=== PATIENT | male | born 1970 | race Caucasian/White ===

== ENCOUNTER → 2016-12-11 | Outpatient (REF) | payer BC ==
[~2016-12-11] MED LIST: AUGM500T34 PO; DOCU10CA PO; IBUPROPHEN PO; LISI10TA4 PO; LISIPOW PO; LORT5TAB PO; METO25TA74 PO; METO25TAB PO; METOPROLOL PO; SERTRALINE PO; TYLE325T5 PO; ZOLO50TA PO
== END ==
LOC: M LAB REF 12:29
PROVIDERS: ATTEND Family Medicine
DX: Z85.038 Personal history of other malignant neoplasm of large intestine (principal)

== ENCOUNTER → 2017-06-22 | Outpatient (REF) | payer BC, OTHER, SELFPAY ==
[~2017-06-22] MED LIST changes: +METO1TAB32 PO; -METO25TA74 PO
== END ==
LOC: M LAB REF 12:44
PROVIDERS: ATTEND Family Medicine
DX: Z85.038 Personal history of other malignant neoplasm of large intestine (principal)

== ENCOUNTER → 2017-12-27 | Outpatient (REF) | payer SELFPAY ==
[2017-12-28 09:14] LABS: CARCINOEMBRYONIC ANTIGEN 4.5 NG/ML (<2.5)
== END ==
LOC: M LAB REF 12:27
DX: Z08 Encounter for follow-up examination after completed treatment for malignant neoplasm (principal); Z85.038 Personal history of other malignant neoplasm of large intestine
CPT/HCPCS: 82378

== ENCOUNTER 2018-01-20 09:13 | Day surgery (SDC) | payer OTHER ==
[2018-01-20] MEDS: NS 1,000 ML IV (09:33)
[2018-01-20] MEDS ORDERED: PROPOFOL 200 MG/20 ML VIAL As Ordered ×2 (10:23)
== END 2018-01-20 11:02 | disposition home or self-care (01) ==
LOC: M OPP 09:13
DX: Z08 Encounter for follow-up examination after completed treatment for malignant neoplasm (principal); D12.3 Benign neoplasm of transverse colon; D12.0 Benign neoplasm of cecum; Z86.010 Personal history of colon polyps; Z85.038 Personal history of other malignant neoplasm of large intestine; K57.30 Diverticulosis of large intestine without perforation or abscess without bleeding; I10 Essential (primary) hypertension; G47.30 Sleep apnea, unspecified; R51 Headache; Z79.899 Other long term (current) drug therapy; Z87.891 Personal history of nicotine dependence
CPT/HCPCS: 45385

== ENCOUNTER → 2018-07-04 | Outpatient (REF) | payer OTHER ==
[2018-07-05 08:41] LABS: CARCINOEMBRYONIC ANTIGEN 4.9 NG/ML (<2.5)
== END ==
LOC: M LAB REF 12:35
DX: C18.9 Malignant neoplasm of colon, unspecified (principal)
CPT/HCPCS: 82378

== ENCOUNTER → 2019-06-23 | Outpatient (REF) | payer OTHER ==
[~2019-06-23] MED LIST changes: +METO-346 PO; -METO25TAB PO
== END ==
LOC: M LAB REF 11:59
PROVIDERS: ATTEND Family Medicine
DX: C18.9 Malignant neoplasm of colon, unspecified (principal)

== ENCOUNTER 2019-08-31 09:50 | Day surgery (SDC) | payer OTHER ==
[~2019-08-31] VITALS: Ht 177.8 cm; Wt 121.1 kg
[~2019-08-31 09:50] MED LIST changes: +MULTCAP PO; +NS 1,000 ML IV ONE
[2019-08-31] MEDS ORDERED: PROPOFOL 200 MG/20 ML VIAL As Ordered ONE ×2 (11:42→12:05)
--- NOTE | 2019-08-31 12:06 | ROOR ---
Patient Name: Larry Briceño Procedure Date: 08/31/2019 11:42 AM Date of : 1970 Age: 49 Room: [facility], [facility]IN [facility] Gender: Male Note Status: Finalized Procedure: Colonoscopy Indications: High risk colon cancer surveillance: Personal history of colon cancer Providers: Wayne Olivarez Jr, MD Referring MD: Pineda Connor MD Requesting Provider: Medicines: Propofol per Anesthesia Complications: No immediate complications. Procedure: Pre-Anesthesia Assessment: - Prior to the procedure, a History and Physical was performed, and patient medications and allergies were reviewed. The patient is competent. The risks and benefits of the procedure and the sedation options and risks were discussed with the patient. All questions were answered and informed consent was obtained. Patient identification and proposed procedure were verified by the physician and the nurse in the pre-procedure area and in the procedure room. Mental Status Examination: alert and oriented. Airway Examination: normal oropharyngeal airway and neck mobility. Respiratory Examination: clear to auscultation. CV Examination: normal. ASA Grade Assessment: II - A patient with mild systemic disease. After reviewing the risks and benefits, the patient was deemed in satisfactory condition to undergo the procedure. The anesthesia plan was to use moderate sedation / analgesia (conscious sedation). Immediately prior to administration of medications, the patient was re-assessed for adequacy to receive sedatives. The heart rate, respiratory rate, oxygen saturations, blood pressure, adequacy of pulmonary ventilation, and response to care were monitored throughout the procedure. The physical status of the patient was re-assessed after the procedure. The Colonoscope was introduced through the anus and advanced to the cecum, identified by appendiceal orifice and ileocecal valve. The colonoscopy was performed without difficulty. The patient tolerated the procedure well. The quality of the bowel preparation was adequate. Findings: The rectum, recto-sigmoid colon, transverse colon, ascending colon, cecum, appendiceal orifice and ileocecal valve appeared normal. Multiple small and large-mouthed diverticula were found in the sigmoid colon. Two polyps were found in the cecum. The polyps were diminutive in size. These polyps were removed with a cold snare. Resection and retrieval were complete. Impression: - The rectum, recto-sigmoid colon, transverse colon, ascending colon, cecum, appendiceal orifice and ileocecal valve are normal. - Diverticulosis in the sigmoid colon. - Two diminutive polyps in the cecum, removed with a cold snare. Resected and retrieved. Recommendation: - Discharge patient to home (ambulatory). - Repeat colonoscopy in 3 - 5 years for surveillance. Wayne Olivarez MD Wanye Olivarez Jr, MD 08/31/2019 12:05:54 PM Electronically signed by Wayne Olivarez Jr, MD Number of Addenda: 0 Note Initiated On: 08/31/2019 11:42 AM Estimated Blood Loss: Estimated blood loss: none.
[2019-08-31 12:40] VITALS: BP 154/96
== END 2019-08-31 12:55 | disposition home or self-care (01) ==
LOC: M OPP 09:50
PROVIDERS: ATTEND Surgery
DX: Z85.038 Personal history of other malignant neoplasm of large intestine (principal); Z08 Encounter for follow-up examination after completed treatment for malignant neoplasm; D12.0 Benign neoplasm of cecum; K57.30 Diverticulosis of large intestine without perforation or abscess without bleeding; Z79.899 Other long term (current) drug therapy

== ENCOUNTER → 2019-12-29 | Outpatient (REF) | payer OTHER ==
[~2019-12-29] MED LIST changes: -NS 1,000 ML IV ONE
== END ==
LOC: M LAB REF 12:11
PROVIDERS: ATTEND Family Medicine
DX: C18.9 Malignant neoplasm of colon, unspecified (principal)

== ENCOUNTER → 2020-07-05 | Outpatient (REF) | payer OTHER | LOC: M LAB REF 09:59 | PROVIDERS: ATTEND Family Medicine | DX: C18.9 Malignant neoplasm of colon, unspecified (principal) ==

== ENCOUNTER → 2020-08-12 | Outpatient (REF) | payer OTHER | LOC: M LAB REF 16:36 | PROVIDERS: ATTEND Family Medicine | DX: C18.9 Malignant neoplasm of colon, unspecified (principal) ==

== ENCOUNTER → 2021-01-03 | Outpatient (REF) | payer OTHER ==
[~2021-01-03] MED LIST changes: +LISI10TA22 PO; -LISI10TA4 PO
== END ==
LOC: M LAB REF 11:26
PROVIDERS: ATTEND Family Medicine
DX: C18.9 Malignant neoplasm of colon, unspecified (principal)

== ENCOUNTER → 2021-01-10 | Outpatient (REF) | payer OTHER ==
[2021-01-10 17:59] LABS: C REACTIVE PROTEIN QUANTITATIV < 0.30 MG/DL (0.00-0.30); RHEUMATOID FACTOR QUANT < 10.0 IU/ML (<15.0)
[2021-01-13 13:11] LABS: ANTI DOUBLE STRAND-DNA AB <1 IU/mL (0-9); ANTINUCLEAR ANTIBODIES DIRECT Positive (Negative); RNP ANTIBODIES 1.1 AI (0.0-0.9); SJOGREN'S ANTI SS-A <0.2 AI (0.0-0.9); SJOGREN'S ANTI SS-B <0.2 AI (0.0-0.9); SMITH ANTIBODIES <0.2 AI (0.0-0.9)
== END ==
LOC: M LAB REF 16:47
PROVIDERS: ATTEND Family Medicine
DX: M25.50 Pain in unspecified joint (principal); R53.83 Other fatigue

== ENCOUNTER → 2021-07-11 | Outpatient (REF) | payer OTHER | LOC: M LAB REF 11:11 | PROVIDERS: ATTEND Family Medicine | DX: Z85.038 Personal history of other malignant neoplasm of large intestine (principal) ==

== ENCOUNTER → 2022-02-27 | Outpatient (REF) | payer OTHER | LOC: M LAB REF 11:59 | PROVIDERS: ATTEND Family Medicine | DX: Z85.038 Personal history of other malignant neoplasm of large intestine (principal) ==

== ENCOUNTER → 2022-08-28 | Outpatient (REF) | payer OTHER | LOC: M LAB REF 11:39 | PROVIDERS: ATTEND Family Medicine | DX: Z85.038 Personal history of other malignant neoplasm of large intestine (principal) ==

== ENCOUNTER 2022-12-17 09:53 | Day surgery (SDC) | payer OTHER ==
[~2022-12-17] VITALS: Ht 180.3 cm; Wt 126.6 kg
[~2022-12-17 09:53] MED LIST changes: +LIDOCAINE 2% 100MG/5ML SDV (FOR ANES.) As Ordered ONE; +LISI20TA33 PO; +NS 1,000 ML IV ONE; +propofoL 200 MG/20 ML VIAL As Ordered ONE
[2022-12-17 11:37] VITALS: BP 125/74
== END 2022-12-17 12:00 | disposition home or self-care (01) ==
LOC: M OPP 09:53
PROVIDERS: ATTEND Surgery
DX: Z12.11 Encounter for screening for malignant neoplasm of colon (principal); Z85.038 Personal history of other malignant neoplasm of large intestine; Z86.010 Personal history of colon polyps; D12.6 Benign neoplasm of colon, unspecified; K57.30 Diverticulosis of large intestine without perforation or abscess without bleeding; G47.33 Obstructive sleep apnea (adult) (pediatric); Z87.891 Personal history of nicotine dependence; Z79.899 Other long term (current) drug therapy; Z92.21 Personal history of antineoplastic chemotherapy; Z90.49 Acquired absence of other specified parts of digestive tract

== ENCOUNTER → 2023-03-05 | Outpatient (REF) | payer OTHER ==
[~2023-03-05] MED LIST changes: -LIDOCAINE 2% 100MG/5ML SDV (FOR ANES.) As Ordered ONE; -NS 1,000 ML IV ONE; -propofoL 200 MG/20 ML VIAL As Ordered ONE
== END ==
LOC: M LAB REF 12:00
PROVIDERS: ATTEND Family Medicine
DX: Z85.038 Personal history of other malignant neoplasm of large intestine (principal); Z92.21 Personal history of antineoplastic chemotherapy

== ENCOUNTER → 2023-11-26 | Outpatient (REF) | payer OTHER | LOC: M LAB REF 12:42 | PROVIDERS: ATTEND Family Medicine | DX: C18.7 Malignant neoplasm of sigmoid colon (principal) ==

== ENCOUNTER → 2023-12-31 | Outpatient (REF) | payer OTHER | LOC: M LAB REF 16:26 | PROVIDERS: ATTEND Family Medicine | DX: C18.7 Malignant neoplasm of sigmoid colon (principal) ==